=== PATIENT | female | born 1990 | race Caucasian/White ===

== ENCOUNTER 2020-01-12 14:22 | Outpatient (CLI) | payer MEDICAID ==
[~2020-01-12] VITALS: Ht 167.6 cm; Wt 75.0 kg
--- NOTE | 2020-01-12 14:30 | NUR ---
See physician notification 1451-Reactive FHR strip obtained. Pt taken off monitors. Labor precaution instructions given. Pt verbalizes understanding. Leaves unit ambulatory.
[2020-01-12 14:51] VITALS: BP 123/82; PULSE 116; TEMP 98.3
== END 2020-01-12 15:00 | disposition home or self-care (01) ==
LOC: LDRO 14:22
DX: Z34.83 Encounter for supervision of other normal pregnancy, third trimester (principal); Z3A.36 36 weeks gestation of pregnancy

== ENCOUNTER 2020-02-13 06:19 | Inpatient (IN) | payer MEDICAID ==
[2020-02-13] VITALS (49 sets, daily range): BP systolic 90–137; BP diastolic 57–86; PULSE 70–130; TEMP 97.6–98.2
[~2020-02-13] VITALS: Ht 167.6 cm; Wt 80.5 kg
[~2020-02-13 06:19] MED LIST: PRENATAL MVI PO
--- NOTE | 2020-02-13 06:50 | NUR ---
Patient ambulates to LR6 with significant other, changed into gown, FHR/TOCO monitors placed and explained. Patient states she has been feeling some contractions but nothing regular and lost mucus plug. Denies any leaking of fluid, vaginal bleeding, decreased movement. Plan of care discussed. 0705: IV started in left upper arm, blood obtained and to lab, LR infusing. Assessment done, consents gone over and signed, packet given. 0825: Patient on birthing ball. 0845: Dr. Luke at bedside and assessing patient and FHR strip. 0848: SVE-2/70/-1 and AROM at this time with clear fluid noted. Plan of care discussed.
[2020-02-13] MEDS ORDERED: TYLENOL 500MG500 MG PO (07:11)
[2020-02-13 07:49] LABS: BASO % 0.4 % (0.0-2.0); EOS # 0.1 (0.0-0.7); EOS % 1.2 % (0-4.0); GRAN # 8.3 (1.4-6.5); GRAN % 73.5 % (42.2-75.2); HEMATOCRIT 37.5 % (37.0-47.0); HEMOGLOBIN 12.6 g/dl (12.5-16.0); LYMPH # 2.2 (1.2-3.4); LYMPH % 19.3 % (20.0-51.0); MEAN CELL VOLUME 84 fl (80.0-100.0); MEAN CORPUSCULAR HEMOGLOBIN 28 pg (27.0-31.0); MEAN CORPUSCULAR HGB CONC 34 g/dl (33.0-37.0); MEAN PLATELET VOLUME 10.9 fl (7.4-10.4); MONO # 0.5 (0.1-0.6); MONO % 4.4 % (1.7-9.3); PLATELET COUNT 227 K/mm3 (130-400); RED BLOOD COUNT 4.46 M/mm3 (4.10-5.30); REDCELL DISTRIBUTION WIDTH-CV 13.1 % (11.5-14.5)
--- NOTE | 2020-02-13 09:45 | NUR ---
Patient requesting epidural and T.Rake RN PAIN MANAGEMENT notified. 0958: Patient sitting up for placement of epidural and T.Rake RN PAIN MANAGEMENT at bedside. Difficulty tracing FHR due to maternal position. 1007: Test dose given and patient tolerates well. 1012: Patient repositioned and safety precautions gone over/plan of care discussed. 1030: Dr. Luke at bedside and SVE per physician . 1035: Dean catheter placed and patient tolerates well. Patient turned left lateral with right leg resting in stirrup. 1115: Patient right lateral with left leg resting in stirrup.
--- NOTE | 2020-02-13 13:20 | NUR ---
Dr. Luke at bedside and assessing patient and FHR strip. SVE per physician 3-4//-1. Orders to increase to 30mU as needed.
[2020-02-13] MEDS ORDERED: MOTRIN 800800 MG/TAB PO (13:33)
--- NOTE | 2020-02-13 17:08 | NUR ---
Dr Luke at bedside and assessing patient and FHR strip. SVE-9/100/0 and fetus determined to be in OP position. Orders to turn to side with peanut ball. 1730: SVE per physician 100/0. Practice push done with Dr. Luke at this time. Dean catheter removed and patient tolerates well. 1750: FHR baseline 125-130bpm and recurrent variable decelerations noted and returning to baseline. Patient continues to push with every contraction with Dr. Luke. 180: Spontaneous vaginal delivery of head, shoulder dystocia x20 seconds, head of bed down and Rosemary done, delivery of shoulders and body. Viable female to patient abdomen and cord clamped by physician and cut by FOB. Castro RN assumes care of . Cord blood obtained. 180: Spontaneous delivery of placenta and pitocin bolus started at 333mU. Fundal massage done/firm/bleeding WNL. Pericare done, patient repositioned, ice pack to perineum. Plan of care discussed.
--- NOTE | 2020-02-13 21:15 | NUR ---
Pt up to the bathroom with standby assist and without complications. Pt able to void. Juliet-care done. Pt transferred to room 208 ambulatory. Oriented to room, bed and call light within reach. Plan of care reviewed with pt and at the bedside.
[2020-02-14 00:43] VITALS: BP 112/75; PULSE 106; TEMP 98.2
[2020-02-14 05:50] VITALS: BP 97/63; PULSE 90
[2020-02-14 06:40] VITALS: BP 102/66; PULSE 68; TEMP 98
[2020-02-14] MEDS ORDERED: PERCOCET 325 MG1 TA2 PO (09:06)
[2020-02-14 12:30] VITALS: BP 112/76; PULSE 98; TEMP 97.9
[2020-02-14 16:16] VITALS: BP 102/68; PULSE 76; TEMP 98.1
--- NOTE | 2020-02-14 19:00 | NUR ---
1850- Discharge instructions explained at length to patient and spouse. Questions encouraged and answered. 1900- ID bands verified and removed. Patient ambulatory off unit with spouse and . communications intern escorted family off unit to their personal vehicle.
== END 2020-02-14 19:00 | disposition home or self-care (01) | DRG 807 ==
LOC: LDR 06:19 → OB 06:54
PROVIDERS: ADMIT Obstetrics & Gynecology
PROC: 10E0XZZ Delivery of Products of Conception, External Approach (ICD-10-PCS; principal; 2020-02-13)
PROC: 10907ZC Drainage of Amniotic Fluid, Therapeutic from Products of Conception, Via Natural or Artificial Opening (ICD-10-PCS; 2020-02-13)
PROC: 3E033VJ Introduction of Other Hormone into Peripheral Vein, Percutaneous Approach (ICD-10-PCS; 2020-02-13)
DX: O48.0 Post-term pregnancy (principal); Z37.0 Single live birth; Z3A.40 40 weeks gestation of pregnancy
CPT/HCPCS: J2590; J7120

== ENCOUNTER 2021-11-24 07:58 | Inpatient (IN) | payer MEDICAID ==
[~2021-11-24] VITALS: Ht 167.6 cm; Wt 86.4 kg
[~2021-11-24 07:58] MED LIST changes: +MOTRIN 800800 MG/TAB PO; +PERCOCET 325 MG1 TA2 PO; +TYLENOL 500MG500 MG PO
[2021-11-27] VITALS (43 sets, daily range): BP systolic 104–132; BP diastolic 61–92; PULSE 70–111; TEMP 98–99.4
--- NOTE | 2021-11-27 06:15 | NUR ---
0615- 39.0, G5L3 arrives on unit for scheduled IOL. Ambulatory to LDR5. Oriented to room and plan of care. Patient reports normal movement. Denies any LOF, VB, or contractions. Changes into clean gown. 0630- EFM explained and placed. VS obtained. 0635- IV to left FA. Routine labs obtained. IVF infusing. Consent forms explained and signed. Assessment completed. 0655- SVE by this RN 2-/-2. JANELL. 0657- Pitocin explanied and started at 2mu per protocol. Pt resting with call light within reach.
[2021-11-27 06:56] LABS: BASO % 0.4 % (0.0-2.0); EOS # 0.1 K/mm3 (0.0-0.7); GRAN # 5.2 K/mm3 (1.4-6.5); GRAN % 64.1 % (42.2-75.2); HEMOGLOBIN 11.2 g/dl (12.5-16.0); LYMPH # 2.2 K/mm3 (1.2-3.4); LYMPH % 27.1 % (20.0-51.0); MEAN CELL VOLUME 79 fl (80.0-100.0); MEAN CORPUSCULAR HEMOGLOBIN 27 pg (27-31); MEAN CORPUSCULAR HGB CONC 34 g/dl (33.0-37.0); MEAN PLATELET VOLUME 11.3 fl (7.4-10.4); MONO # 0.5 K/mm3 (0.1-0.6); MONO % 6.7 % (1.7-9.3); PLATELET COUNT 185 K/mm3 (130-400); RED BLOOD COUNT 4.21 M/mm3 (4.10-5.30); REDCELL DISTRIBUTION WIDTH-CV 12.6 % (11.5-14.5)
[2021-11-27 06:58] LABS: HEMATOCRIT 33.2 % (37.0-47.0)
[2021-11-27] MEDS ORDERED: UNISOM25 MG PO (07:12)
[2021-11-27] MEDS ORDERED: PRILOSEC 20MG20 MG PO (07:12)
--- NOTE | 2021-11-27 08:30 | NUR ---
Dr. Luke to bedside and reviews plan of care with patient and SO. SVE per Dr. Luke -/-1. AROM at this time for small amount clear fluid.
--- NOTE | 2021-11-27 11:02 | NUR ---
1102- Patient reports increased pain lower in abdomen. SVE 4-5/80/-2. Patient pushes patient controlled epidural bolus button. Sitting upright with peanut ball.
--- NOTE | 2021-11-27 11:40 | NUR ---
1140- T. Maribel LAND APPRAISER notified pt feeling inreased pain in lower abdomen. Pt controlled epidural button pushed x3 with minimal to no relief. 1151- T. Maribel LAND APPRAISER to bedside to assess. Epidural dosed by provider. See anesthesia record.
--- NOTE | 2021-11-27 12:22 | NUR ---
Tunde López CRNA at bedside to replace PRISCILLA. See anesthesia record.
--- NOTE | 2021-11-27 14:00 | NUR ---
1400- SVE C/+2. Practice push, moves vertex well. Juliet care and pt high fowlers wedge left. 1402- Dr. Luke updated on pt. See physician notification. 1416- Dr. Luke to bedside. 1420- Pt begins to push with Dr. Luke and nursing staff at bedside. Moves vertex well. 1422- Spontaneous vaginal delivery of viable female . To mother's chest where dried and stimulated by nursery RN. Pitocin paused. 1424- Cord clamped x2 and cut by father of . Care of assumed by Lili Pearson RN. 1426- Spontaneous and intact delivery of placenta. Pitocin to 333ml/hr. Perineum intact. Fundus firm, midline, and bleeding small. Juliet care provided, pads changed and ice pack to perineum. Plan of care and safety precautions reviewed. See physician notification, anesthesia record, and nurses notes.
[2021-11-27] MEDS ORDERED: MOTRIN 800800 MG/TAB PO (22:08)
[2021-11-28 04:06] VITALS: BP 109/81; PULSE 74; TEMP 98.8
[2021-11-28 07:15] VITALS: BP 126/89; PULSE 86; TEMP 98.6
--- NOTE | 2021-11-28 09:25 | NUR ---
Initial visit; Parents thanked Tank Erector for offering congratulations and God's blessings for the of their daughter. Tank Erector thanked family for choosing [facility].
[2021-11-28 11:50] VITALS: BP 94/54; PULSE 95; TEMP 97.8
== END 2021-11-28 16:05 | disposition home or self-care (01) | DRG 807 ==
LOC: LDR 11-27 06:08 → OB 11-27 06:08 → LDR 11-27 07:58 → OB 11-27 17:00
PROVIDERS: ADMIT Obstetrics & Gynecology
PROC: 10E0XZZ Delivery of Products of Conception, External Approach (ICD-10-PCS; principal; 2021-11-27)
PROC: 10907ZC Drainage of Amniotic Fluid, Therapeutic from Products of Conception, Via Natural or Artificial Opening (ICD-10-PCS; 2021-11-27)
PROC: 3E033VJ Introduction of Other Hormone into Peripheral Vein, Percutaneous Approach (ICD-10-PCS; 2021-11-27)
DX: O76 Abnormality in fetal heart rate and rhythm complicating labor and delivery (principal); Z37.0 Single live birth; Z3A.39 39 weeks gestation of pregnancy; Z23 Encounter for immunization
CPT/HCPCS: J2405; J2590; J7120